=== PATIENT | female | born 1975 | race Caucasian/White ===

== ENCOUNTER 2018-07-19 16:58 | Emergency (ER) | payer SELFPAY ==
[2018-07-19 17:07] VITALS: BP 127/76
--- NOTE | 2018-07-19 17:14 | EDM.PDOC ---
ED HPI GENERAL MEDICAL PROBLEM - General Chief Complaint: Lower Extremity Injury/Pain Stated Complaint: SWOLLIN/PAIN IN RIGHT LEG Time Seen by Provider: 07/19/18 17:14 Source of Information: Reports: Patient History Limitations: Reports: No Limitations - History of Present Illness INITIAL COMMENTS - FREE TEXT/NARRATIVE: Patient is a 42-year-old female presents ED complaining of right lower calf swelling and pain with ambulation. This started approximately 7 days ago and notes the pain has grown increasingly worse. Pain is worse with ambulation relieved with rest. Described as a crampy sensation that radiates downward towards her foot. Swelling has been persistent with intermittent tingling to her foot. She has no history of blood clots or any activities that may have precipitated this. 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 There's been no shortness of breath, chest pain, or history of cancer. She is currently on no control. Smokes socially. No recent hospitalization, recent long travel, or other concerning history. right lower extremity Pain Score (Numeric/FACES): 6 - Related Data Allergies Allergy/AdvReac Type Severity Reaction Status Date / Time No Known Allergies Allergy Verified 07/19/18 17:07 Home Meds: Home Meds Biotin/Keratin [Biotin Plus Keratin Tablet] 1 each PO DAILY 07/19/18 [History] Escitalopram [Lexapro] 10 mg PO DAILY 07/19/18 [History] Multivitamin [Multivitamins] 1 each PO DAILY 07/19/18 [History] Rivaroxaban [Xarelto] 15 mg PO BID #42 tablet 07/19/18 [Rx] Rivaroxaban [Xarelto] 20 mg PO QAM #30 tablet 07/19/18 [Rx] Past Medical History HEENT History: Reports: Impaired Vision SENIOR PRINCIPAL ARCHITECT History: Reports: Other (See Below) Other SENIOR PRINCIPAL ARCHITECT History: benign lumpectomy to left breast Psychiatric History: Reports: Anxiety - Infectious Disease History Infectious Disease History: Reports: Chicken Pox - Past Surgical History Female Surgical History: Reports: Oophorectomy, Other (See Below) Other Female Surgeries/Procedures: breast lump removal Social & Family History - Family History Family Medical History: Noncontributory - Tobacco Use Smoking Status *Q: Current Some Day Smoker Years of Tobacco use: 20 Packs/Tins Daily: 0.1 - Caffeine Use Caffeine Use: Reports: Coffee - Recreational Drug Use Recreational Drug Use: Yes Recreational Drug Type: Reports: Marijuana/Hashish Review of Systems - Review of Systems Review Of Systems: ROS reveals no pertinent complaints other than HPI. ED EXAM, GENERAL - Physical Exam Exam: See Below Exam Limited By: No Limitations General Appearance: Alert, WD/WN, No Apparent Distress Ears: Hearing Grossly Normal Nose: Normal Inspection Throat/Mouth: Normal Voice, No Airway Compromise Neck: Normal Inspection, Supple Respiratory/Chest: No Respiratory Distress, Lungs Clear, Normal Breath Sounds, Chest Non-Tender Cardiovascular: Normal Peripheral Pulses, Regular Rate, Rhythm, No Murmur Peripheral Pulses: 2+: Posterior Tibial (L), Posterior Tibial (R) GI/Abdominal: Normal Bowel Sounds, Soft, Non-Tender, No Organomegaly, No Distention Extremities: Normal Range of Motion, No Pedal Edema, Normal Capillary Refill, Other (Approximately half centimeter size difference between the right left calf. Pain noted along the posterior aspect of the calf . No increased redness , warmth, or bruising noted.) Neurological: Alert, Oriented, CN II-XII Intact, Normal Cognition, No Motor/ Sensory Deficits Psychiatric: Normal Affect, Normal Mood Skin Exam: Warm, Dry, Intact, Normal Color, No Rash Course - Vital Signs Last Recorded V/S: Last Vital Signs Temp 98.4 F 07/19/18 17:04 Pulse 74 07/19/18 17:04 Resp 18 07/19/18 17:04 BP 127/76 07/19/18 17:04 Pulse Ox 96 07/19/18 17:04 - Orders/Labs/Meds Orders: Active Orders 24 hr Category Date Time Status VL Duplex Lwr Ext Veins Ltd Rt [US] Stat Exams 07/19/18 17:25 Taken Labs: Laboratory Tests 07/19/18 07/19/18 07/19/18 Range/Units 17:35 17:35 17:35 WBC 8.06 (3.98-10.04) K/mm3 RBC 4.09 (3.98-5.22) M/mm3 Hgb 13.0 (11.2-15.7) gm/L Hct 38.9 (34.1-44.9) % MCV 95.1 H (79.4-94.8) fl MCH 31.8 (25.6-32.2) pg MCHC 33.4 (32.2-35.5) g/dl RDW Std Deviation 42.7 (36.4-46.3) fL Plt Count 249 (182-369) K/mm3 MPV 9.9 (9.4-12.3) fl Neutrophils % (Manual) 50 (40-60) % Band Neutrophils % 0 (0-10) % Lymphocytes % (Manual) 38 (20-40) % Atypical Lymphs % 0 % Monocytes % (Manual) 9 (2-10) % Eosinophils % (Manual) 3 (0.7-5.8) % Basophils % (Manual) 0 L (0.1-1.2) Platelet Estimate Adequate Plt Morphology Comment Normal RBC Morph Comment Normal PT 9.8 (9.5-12.1) SECONDS INR < 0.93 APTT 25 (24-31) SECONDS Sodium 144 (136-145) mEq/L Potassium 3.2 L (3.5-5.1) mEq/L Chloride 108 H (98-107) mEq/L Carbon Dioxide 27 (21-32) mEq/L Anion Gap 12.2 (5-15) BUN 12 (7-18) mg/dL Creatinine 0.8 (0.55-1.02) mg/dL Est Cr Clr Drug Dosing 71.71 mL/min Estimated GFR (MDRD) > 60 (>60) mL/min BUN/Creatinine Ratio 15.0 (14-18) Glucose 109 H (74-106) mg/dL Calcium 8.5 (8.5-10.1) mg/dL Total Bilirubin 0.1 L (0.2-1.0) mg/dL AST 44 H (15-37) U/L ALT 95 H (14-59) U/L Alkaline Phosphatase 120 H (46-116) U/L C-Reactive Protein 5.4 H* (<1.0) mg/dL Total Protein 7.1 (6.4-8.2) g/dl Albumin 3.0 L (3.4-5.0) g/dl Globulin 4.1 gm/dL Albumin/Globulin Ratio 0.7 L (1-2) Meds: Medications Discontinued Medications Generic Name Dose Route Start Last Admin Trade Name Freq PRN Reason Stop Dose Admin Rivaroxaban 15 mg 07/19/18 20:17 07/19/18 20:29 Xarelto PO 07/19/18 20:18 15 mg ONETIME ONE Administration - Re-Assessments/Exams Free Text/Narrative Re-Assessment/Exam: Wells criteria reviewed. Patient is within the moderate risk group for DVT. Thus will obtain ultrasound of the right lower extremity to rule out DVT. In addition basic labs will be obtained including CBC, chem 14, CRP, hCG qualitative, and coag studies. Labs reviewed: CBC essentially normal. Potassium 3.2, creatinine 0.8, AST 44, ALT 95, alk phosphatase 120, CRP 5.4. Ultrasound Impression: Area of thrombus present within the posterior tibial vein consistent with DVT. Had a long discussion with the patient on different types of antiocoagulants we can prescribe including: warfarin, xarelto, and eliquis. Discussed the pros and cons of all three in relation to frequency of administration, followup required, medications/foods that would affect warfarin, bleeding risk, and treatment for bleeding. Patient has elected to go with xarelto. Coupon provided to the patient as well the first 15mg dose PO. All questions were answered. The patient remained hemodynamically stable while under my care in the E.D. I discussed the concerning symptoms for which to return to the E.D. with the patient/family. The patient/family verbalized understanding. All questions were answered. Departure - Departure Time of Disposition: 20:08 Disposition: Home, Self-Care 01 Condition: Good Clinical Impression: DVT (deep venous thrombosis) Qualifiers: DVT location: lower extremity Affected thrombotic vein of extremity: tibial Chronicity: acute Laterality: right Qualified Code(s): I82.441 - Acute embolism and thrombosis of right tibial vein - Discharge Information Prescriptions: Rivaroxaban [Xarelto] 15 mg PO BID #42 tablet Rivaroxaban [Xarelto] 20 mg PO QAM #30 tablet Instructions: Deep Vein Thrombosis Referrals: PCP,Not In Area [Primary Care Provider] - Forms: ED Department Discharge Additional Instructions: Ultrasound of the right leg revealed blood clot to the right tibial vein. This is part of the deep venous structures and thus anticoagulant is required. You chose xarelto, dose will be 15 mg twice a day for 21 days. Will change to 20mgs qd thereafter. Please see your PCP within the next 1-2 wks for reevaluation to ensure symptoms are improving. Close followup will be required and further workup for hypercoagulable state is suggested. Please read the educational material on DVT and medication info for xarelto. Be aware you are at increased risk of bleeding. Please return to the E.D. if you develop any new or worsening symptoms. - My Orders Last 24 Hours: My Active Orders 07/19/18 17:25 VL Duplex Lwr Ext Veins Ltd Rt [US] Stat - Assessment/Plan Last 24 Hours: My Active Orders 07/19/18 17:25 VL Duplex Lwr Ext Veins Ltd Rt [US] Stat
[2018-07-19] MEDS ORDERED: Rivaroxaban 10 MG Tab PO ONE (20:17)
--- NOTE | 2018-07-22 10:21 | US ---
Right lower extremity deep venous ultrasound: Multiple real-time images were obtained of the right common femoral, proximal greater saphenous, superficial femoral, popliteal, posterior tibial and peroneal veins. Left common femoral vein was also evaluated. Posterior tibial vein shows evidence of acute thrombus. Other veins show normal phasic flow, augmentation and compression. Impression: 1. Deep venous thrombosis within the right posterior tibial vein. 2. No other findings of deep venous thrombosis seen within the right lower extremity or within the left common femoral vein. Diagnostic code #3 I agree with preliminary report from [facility], finalized at 07/19/18, 8:13 PM Central Time
== END 2018-07-19 20:34 | disposition home or self-care (01) ==
LOC: JD.ED 16:58
DX: I82.441 Acute embolism and thrombosis of right tibial vein (principal); F17.210 Nicotine dependence, cigarettes, uncomplicated
CPT/HCPCS: 36415; 80053; 85007; 85027; 85610; 85730; 86140; 93971; 99284; A9270

== ENCOUNTER 2019-04-30 22:08 | Emergency (ER) | payer BC, OTHER ==
[2019-04-30 22:48] VITALS: BP 117/91
--- NOTE | 2019-04-30 23:17 | EDM.PDOC ---
ED HPI GENERAL MEDICAL PROBLEM - General Chief Complaint: Lower Extremity Injury/Pain Stated Complaint: LEFT FOOT TOE POSSIBLE BROKEN Time Seen by Provider: 04/30/19 23:13 Source of Information: Reports: Patient History Limitations: Reports: No Limitations - History of Present Illness INITIAL COMMENTS - FREE TEXT/NARRATIVE: Patient is a 43-year-old female presents ED complaining of left second toe pain. Patient states she was walking outside in her [place] when she tripped over a log. Experienced immediate pain to the second toe. Denies any pain to the left knee, tib-fib, ankle, or other aspect of the foot and toes. Patient utilize a crutch to ambulate. 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: Other (See Below) Other KEYBOARD SPECIALIST History: benign lumpectomy to left breast Psychiatric History: Reports: Anxiety - Infectious Disease History Infectious Disease History: Reports: Chicken Pox - Past Surgical History Female Surgical History: Reports: Oophorectomy, Other (See Below) Other Female Surgeries/Procedures: breast lump removal Musculoskeletal Surgical History: Reports: Other (See Below) Social & Family History - Family History Family Medical History: Noncontributory - Tobacco Use Smoking Status *Q: Current Every Day Smoker Years of Tobacco use: 20 Packs/Tins Daily: 0.5 - Caffeine Use Caffeine Use: Reports: Coffee - Recreational Drug Use Recreational Drug Type: Reports: Marijuana/Hashish Review of Systems - Review of Systems Review Of Systems: ROS reveals no pertinent complaints other than HPI. ED EXAM, GENERAL - Physical Exam Exam: See Below Exam Limited By: No Limitations General Appearance: Alert, WD/WN, No Apparent Distress Ears: Hearing Grossly Normal Nose: Normal Inspection Throat/Mouth: Normal Voice, No Airway Compromise Neck: Normal Inspection, Supple Respiratory/Chest: No Respiratory Distress, No Accessory Muscle Use Cardiovascular: Normal Peripheral Pulses, Regular Rate, Rhythm Peripheral Pulses: 2+: Posterior Tibial (L) Extremities: Other (On exam of the left foot the second toe is mildly swollen and slightly angled laterally. Pain is to the base of the MTP. No pain with palpation of the remaining toes and other aspects of the foot, ankle, proximal/ distal tib-fib, and knee.) Neurological: Alert, Oriented, CN II-XII Intact, Normal Cognition, No Motor/ Sensory Deficits Psychiatric: Normal Affect, Normal Mood Skin Exam: Warm, Dry, Intact, Normal Color, No Rash Course - Vital Signs Last Recorded V/S: Last Vital Signs Temp 97.9 F 04/30/19 22:46 Pulse 109 H 04/30/19 22:46 Resp 20 04/30/19 22:46 BP 117/91 H 04/30/19 22:46 Pulse Ox 98 04/30/19 22:46 - Orders/Labs/Meds Orders: Active Orders 24 hr Category Date Time Status Toes Second Digit Lt T1 [CR] Stat Exams 04/30/19 23:13 Taken - Re-Assessments/Exams Free Text/Narrative Re-Assessment/Exam: Ordered x-ray of the left second toe. Patient has minimal pain. 04/30/19 23:52 X-ray of the left 2nd toe reviewed with Dr. Yo with fracture to the base and mildly displaced. Suggested micah taping, surgical shoe , and non weightbearing. Followup with camera maker of her choice Thursday/Thursday of this week. Patient has crutches. Discussed x-ray results with patient . Toe will be micah taped prior to leaving. Patient has crutches. Return precautions discussed with the patient. She voiced her understanding and no other questions or concerns. Departure - Departure Time of Disposition: 23:55 Disposition: Home, Self-Care 01 Condition: Good Clinical Impression: Fracture of second toe, left, closed Qualifiers: Encounter type: initial encounter Qualified Code(s): S92.502A - Displaced unspecified fracture of left lesser toe(s), initial encounter for closed fracture - Discharge Information Instructions: Toe Fracture, [id number], Crutch Use, Adult, [id number] Referrals: Meet Neumann II, DPM [Physician] - Forms: ED Department Discharge Additional Instructions: You have a fracture to the second toe of the left foot. Toe was micah taped to the adjacent toe. Continue to do so until evaluated by camera maker of your choice this coming week. Call and make an appointment on Thursday to be evaluated Thursday or Thursday. You're to be nonweightbearing. Utilize crutches to ambulate. Elevate when able to reduce any swelling or pain. Apply ice to affected area 4 times a day, 30 minutes in duration, do not apply ice directly on the skin. Utilize Tylenol and ibuprofen in alternating fashion for pain. Return to the ED if you develop any new or worsening symptoms. - My Orders Last 24 Hours: My Active Orders 04/30/19 23:13 Toes Second Digit Lt T1 [CR] Stat - Assessment/Plan Last 24 Hours: My Active Orders 04/30/19 23:13 Toes Second Digit Lt T1 [CR] Stat
--- NOTE | 2019-05-02 10:16 | CR ---
Left second toe: Four views of the left second toe were obtained. Comparison: No prior toe study. Slightly angulated fracture is identified within the proximal shaft of the proximal phalanx of the left second toe. Soft tissue swelling is seen. Mild degenerative change is noted with first MTP joint. Impression: 1. Slightly angulated fracture involving the proximal phalanx left second toe as noted above. Soft tissue swelling. 2. Other incidental finding. Diagnostic code #3
== END 2019-05-01 00:35 | disposition home or self-care (01) ==
LOC: JD.ED 22:08 → SUPCPDRO 22:08 → JD.ED 05-01 00:35
DX: S92.502A Displaced unspecified fracture of left lesser toe(s), initial encounter for closed fracture (principal); Z79.899 Other long term (current) drug therapy; F17.210 Nicotine dependence, cigarettes, uncomplicated; W22.8XXA Striking against or struck by other objects, initial encounter
CPT/HCPCS: 73660-26-T1; 73660-T1; 99283; 99283-25

== ENCOUNTER 2020-01-29 15:22 | Emergency (ER) | payer SELFPAY ==
[2020-01-29 15:36] VITALS: BP 122/80; PULSE 0
--- NOTE | 2020-01-29 15:47 | EDM.PDOC ---
ED HPI GENERAL MEDICAL PROBLEM - General Chief Complaint: Cardiovascular Problem Stated Complaint: POSS BLOODCLOT IN RIGHT LEG Time Seen by Provider: 01/29/20 15:30 - History of Present Illness INITIAL COMMENTS - FREE TEXT/NARRATIVE: 44-year-old female presents the emergency room with right calf pain this been going on for over a day now. Patient has a significant left history of a DVT. This was treated with Eliquis. She stopped taking the Eliquis in December of last year and was started on regular strength aspirin at that time. The patient recently returned from the [facility] where she noticed she had was having some shortness of breath at the increased altitude however she has not noticed any shortness of breath back home. She is coming down with cold however. 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 RISK History: Reports: Other (See Below) Other MANAGER CREDIT RISK History: benign lumpectomy to left breast Musculoskeletal History: Reports: Fracture Psychiatric History: Reports: Anxiety Endocrine/Metabolic History: Reports: Obesity/BMI 30+ - Infectious Disease History Infectious Disease History: Reports: Chicken Pox - Past Surgical History HEENT Surgical History: Reports: Naso-Sinus Surgery Cardiovascular Surgical History: Reports: Varicose Female Surgical History: Reports: Hysterectomy, Oophorectomy, Other (See Below) Other Female Surgeries/Procedures: breast lump removal Musculoskeletal Surgical History: Reports: Other (See Below) Social & Family History - Family History Family Medical History: Noncontributory - Tobacco Use Smoking Status *Q: Current Every Day Smoker Years of Tobacco use: 3 Packs/Tins Daily: 0.3 - Caffeine Use Caffeine Use: Reports: Coffee - Recreational Drug Use Recreational Drug Use: No ED ROS GENERAL - Review of Systems Review Of Systems: See Below Constitutional: Reports: No Symptoms HEENT: Reports: Rhinitis Respiratory: Reports: No Symptoms. Denies: Pleuritic Chest Pain Cardiovascular: Reports: No Symptoms GI/Abdominal: Reports: No Symptoms Musculoskeletal: Reports: Other (Right calf pain she has not noticed any redness or swelling however with her last DVT she did not have redness or swelling.) ED EXAM, GENERAL - Physical Exam Exam: See Below Exam Limited By: No Limitations General Appearance: Alert, No Apparent Distress Head: Atraumatic, Normocephalic Neck: Normal Inspection, Supple, Non-Tender, Full Range of Motion Respiratory/Chest: No Respiratory Distress, Lungs Clear, Normal Breath Sounds Cardiovascular: Regular Rate, Rhythm, No Edema, No Murmur GI/Abdominal: Normal Bowel Sounds, Soft, Non-Tender Extremities: Other (Calf shows no redness no swelling however she is got some palpable discomfort in the mid calf region Homans sign is unremarkable.) Course - Vital Signs Last Recorded V/S: Last Vital Signs Temp 37.4 C 01/29/20 15:34 Pulse 0 L 01/29/20 15:34 Resp 20 01/29/20 15:34 BP 122/80 01/29/20 15:34 Pulse Ox 97 01/29/20 15:34 - Orders/Labs/Meds Labs: Laboratory Tests 01/29/20 Range/Units 15:47 D-Dimer, Quantitative 0.47 (0.19-0.50) mg/L - Re-Assessments/Exams Free Text/Narrative Re-Assessment/Exam: 01/29/20 15:42 Patient is modified well score is 2 one-point for prior DVT and another point for tenderness in the right calf. At this point will await the d-dimer before pursuing lower leg Doppler. I have explained this to the patient and she agrees. If d-dimer is negative and she still symptomatic in 2 to 3 days she needs follow-up in the clinic and possible repeat d-dimer versus lower leg Doppler if indicated. 01/29/20 17:14 D-dimer is in the normal range at 0.47. The patient does take aspirin. It is strongly encouraged that she follow-up in 2 to 3 days either here in the emergency room or in the clinic if still symptomatic and have a repeat d-dimer and/or lower leg Doppler done certainly if she is getting worse at all she needs to be reevaluated at that point. Departure - Departure Time of Disposition: 17:16 Disposition: Home, Self-Care 01 Clinical Impression: Right calf pain Referrals: Nancy Hernandez MD [Primary Care Provider] - Forms: ED Department Discharge Additional Instructions: Return to the emergency room with any questions problems or worsening symptoms. Return with any worsening symptoms. Follow-up in the clinic in 2 to 3 days for a repeat d-dimer and/or lower leg Doppler if still symptomatic. Sepsis Event Note - Evaluation Sepsis Screening Result: No Definite Risk - Focused Exam Vital Signs: Vital Signs Temp Pulse Resp BP Pulse Ox 01/29/20 15:34 37.4 C 0 L 20 122/80 97 Date Exam was Performed: 01/29/20 Time Exam was Performed: 17:14
== END 2020-01-29 17:25 | disposition home or self-care (01) ==
LOC: JD.ED 15:22
DX: M79.661 Pain in right lower leg (principal); F17.210 Nicotine dependence, cigarettes, uncomplicated; Z79.82 Long term (current) use of aspirin
CPT/HCPCS: 36415; 85379; 99282; 99283

== ENCOUNTER 2021-07-25 20:08 | Emergency (ER) | payer SELFPAY ==
[2021-07-25 20:31] VITALS: BP 131/76; PULSE 82
--- NOTE | 2021-07-25 23:09 | EDM.PDOC ---
ED HPI GENERAL MEDICAL PROBLEM - General Chief Complaint: Cardiovascular Problem Stated Complaint: POSS BLOOD CLOT RT LEG Time Seen by Provider: 07/25/21 21:38 Source of Information: Reports: Patient History Limitations: Reports: No Limitations - History of Present Illness INITIAL COMMENTS - FREE TEXT/NARRATIVE: 45-year-old female presents the emergency department today with complaints of increased swelling and pain noted to her right foot and ankle. Patient states that she has noted increased swelling and discomfort over the course of the past week. 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 Of note she states she has also noted increased swelling in her bilateral lower extremities more over the past couple of weeks. However she states she just started working and has been on her feet quite a bit more. She denies any shortness of breath or chest pain. She denies any fever, chills, nausea, vomiting or diarrhea. She denies any cough or sore throat or headache or any other respiratory type symptoms. She is a smoker. She states she started smoking 4 years ago. 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 (See Below) 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: benign lumpectomy to left breast Musculoskeletal History: Reports: Fracture Psychiatric History: Reports: Anxiety Endocrine/Metabolic History: Reports: Obesity/BMI 30+ - Infectious Disease History Infectious Disease History: Reports: Chicken Pox - Past Surgical History HEENT Surgical History: Reports: Naso-Sinus Surgery Cardiovascular Surgical History: Reports: Varicose Female Surgical History: Reports: Hysterectomy, Oophorectomy, Other (See Below) Other Female Surgeries/Procedures: breast lump removal Musculoskeletal Surgical History: Reports: Other (See Below) Other Musculoskeletal Surgeries/Procedures:: rt arm surgery Social & Family History - Family History Family Medical History: No Pertinent Family History - Tobacco Use Tobacco Use Status *Q: Current Every Day Tobacco User Years of Tobacco use: 4 Packs/Tins Daily: 0.5 - Caffeine Use Caffeine Use: Reports: Coffee - Recreational Drug Use Recreational Drug Use: No ED ROS GENERAL - Review of Systems Review Of Systems: Comprehensive ROS is negative, except as noted in HPI. ED EXAM, GENERAL - Physical Exam Exam: See Below Exam Limited By: No Limitations General Appearance: Alert, WD/WN, No Apparent Distress Ears: Normal External Exam, Hearing Grossly Normal Nose: Normal Inspection Throat/Mouth: Normal Inspection, Normal Lips, Normal Voice, No Airway Compromise Head: Atraumatic Neck: Normal Inspection, Supple Respiratory/Chest: No Respiratory Distress, Lungs Clear, Normal Breath Sounds, No Accessory Muscle Use, Chest Non-Tender Cardiovascular: Normal Peripheral Pulses, Regular Rate, Rhythm, No Murmur. No: No Edema (1+ pedal edema noted to right foot and ankle area; trace of edema noted to left foot and ankle) Peripheral Pulses: 2+: Dorsalis Pedis (L), Dorsalis Pedis (R) GI/Abdominal: Normal Bowel Sounds, Soft, Non-Tender, No Distention (Female) Exam: Deferred Rectal (Female) Exam: Deferred Back Exam: Normal Inspection Extremities: Normal Inspection, Normal Range of Motion, Normal Capillary Refill, Pedal Edema (1+ noted to right lower extremity, trace noted to left lower extremity). No: Non-Tender (Tenderness noted to right foot and ankle area) Neurological: Alert, Oriented, Normal Cognition Psychiatric: Normal Affect, Normal Mood Skin Exam: Warm, Dry, Intact, Normal Color, No Rash Lymphatic: No Adenopathy Course - Vital Signs Text/Narrative:: As stated above, the patient states she does have a history of DVT in the right ankle and has noted increased swelling and pain. Upon exam patient does have 1+ edema noted to the right foot and ankle area. Patient also has tenderness with palpation. She does have tenderness noted to the back of her calf just distal to the popliteal space. With the patient's history of DVT and smoking history I have elected to order an ultrasound of the right lower extremity to rule out DVT. Last Recorded V/S: Last Vital Signs Temp 97 F 07/25/21 20:31 Pulse 82 07/25/21 20:31 Resp 16 07/25/21 20:31 BP 131/76 07/25/21 20:31 Pulse Ox 100 07/25/21 20:31 - Orders/Labs/Meds Orders: Active Orders 24 hr Category Date Time Status VL Duplex Lwr Ext Veins Ltd Rt [US] Stat Exams 07/25/21 21:51 Taken - Re-Assessments/Exams Free Text/Narrative Re-Assessment/Exam: 07/25/21 22:05 vRad radiologist impression: Negative. No deep venous thrombosis is seen. I discussed the results with the patient. Suggested that she start wearing compression stockings while at work. Also recommended that she follow-up with her primary care provider for further evaluation as she may need an echocardiogram and a more complete work-up with her provider. I suggested she may need some Lasix. At that time the patient tells me she does have a prescription for Lasix but she tries not to take it. I suggested that it may be helpful if she has prescribed it. Also discussed the need to stop smoking as the patient is more prone to blood clots with this. Patient does verbalize understanding of this. Departure - Departure Time of Disposition: 23:09 Disposition: Home, Self-Care 01 Condition: Good Clinical Impression: Swelling of right foot Instructions: Edema, [id number] Referrals: Zulema Reaves MD [Primary Care Provider] - Additional Instructions: You were seen in the emergency department this evening with complaints of increased swelling noted to your bilateral feet and ankles however more noticeable swelling to your right foot. Due to your history of having a DVT in the right ankle an ultrasound was completed to rule out DVT. You do not have a blood clot in your right leg. As discussed recommend wearing compression stockings while at work and on your feet all day long. Also recommend that you start taking your Lasix that was prescribed by your primary care provider. You may also take ibuprofen every 6-8 hours as needed for pain and inflammation. Recommend that you follow-up with your primary care provider in the next 1 to 2 weeks for reevaluation. Sepsis Event Note (ED) - Evaluation Sepsis Screening Result: No Definite Risk - Focused Exam Vital Signs: Vital Signs Temp Pulse Resp BP Pulse Ox 07/25/21 20:31 97 F 82 16 131/76 100 - My Orders Last 24 Hours: My Active Orders 07/25/21 21:51 VL Duplex Lwr Ext Veins Ltd Rt [US] Stat - Assessment/Plan Last 24 Hours: My Active Orders 07/25/21 21:51 VL Duplex Lwr Ext Veins Ltd Rt [US] Stat
--- NOTE | 2021-07-26 09:09 | US ---
Right lower extremity deep venous ultrasound: Duplex and color Doppler evaluation was obtained of the right common femoral, proximal greater saphenous, superficial femoral, popliteal, posterior tibial and peroneal veins. Comparison: Prior right lower extremity venous ultrasound of 07/22/18. Findings: Normal phasic flow, augmentation and compression are seen. Impression: 1. No findings of deep venous thrombosis within the right lower extremity. Diagnostic code #1 I agree with preliminary report from [facility], finalized on 07/25/21, 11:54 PM CDT, code 1
== END 2021-07-25 23:25 | disposition home or self-care (01) ==
LOC: JD.ED 20:08
DX: M79.89 Other specified soft tissue disorders (principal); E66.9 Obesity, unspecified; Z68.41 Body mass index [BMI] 40.0-44.9, adult; Z86.73 Personal history of transient ischemic attack (TIA), and cerebral infarction without residual deficits; Z79.82 Long term (current) use of aspirin; Z79.899 Other long term (current) drug therapy; Z72.0 Tobacco use
CPT/HCPCS: 93971-26-RT; 93971-RT; 99283; 99283-25